=== PATIENT | female | born 1960 | race Caucasian/White ===

== ENCOUNTER → 2018-01-09 | Outpatient (CLI) | payer OTHER ==
[~2018-01-09] VITALS: Ht 170.2 cm; Wt 68.0 kg
[~2018-01-09] MED LIST: ADULT ASPIRIN81 MG PO; PRESERVISION A1 EAC2 PO; RED YEAST RICE600 MG PO; VERAPAMIL E.R240 M1 PO
--- NOTE | ~2018-01-09 | H ---
[facility] [place] [address] HISTORY AND PHYSICAL Name: CAYDEN RAPHAEL Room #: REG KARIS Malik#: [id number] Admission: 01/09/18 Attend Phys: Eliseo Grace MD Discharge: Date of : 58 Report #: [id number] THIS REPORT FOR: //name// CC: Eliseo Bernal DATE OF SERVICE: 01/09/2018 HISTORY OF PRESENT ILLNESS: The patient is a 57-year-old with history of SVT, who is here for SVT ablation. She denies chest pain, shortness of breath, PND, orthopnea, presyncope or syncope. PAST MEDICAL HISTORY: SVT. SOCIAL HISTORY: She does not smoke. FAMILY HISTORY: Noncontributory. ALLERGIES: None. MEDICATIONS: Reviewed. REVIEW OF SYSTEMS: A 12-point review of systems was performed and was negative, other than what I mentioned above. PHYSICAL EXAMINATION: VITAL SIGNS: Reviewed and stable. GENERAL: No acute distress. HEENT: Oropharynx clear. NECK: Supple, with no thyromegaly. HEART: Regular rate and rhythm. LUNGS: Clear to auscultation bilaterally. ABDOMEN: Soft, nontender and nondistended. EXTREMITIES: No clubbing, cyanosis or edema. NEUROLOGIC: Cranial nerves 2-12 intact. ASSESSMENT: Supraventricular tachycardia. PLAN: The patient will undergo SVT ablation today. Risks and benefits have been previously documented. <ELECTRONICALLY SIGNED> By: Eliseo Grace MD 01/23/18 1141 [id number] [id number] Eliseo Grace MD /nt
--- NOTE | ~2018-01-09 | P ---
[facility] [place] [address] PROCEDURE REPORT Name: CAYDEN RAPHAEL Room #: REG [facility]#: [id number] Admission: 01/09/18 Attend Phys: Eliseo Grace MD Discharge: Date of : 58 Report #: [id number] THIS REPORT FOR: //name// CC: Eliseo Bernal PROCEDURE PERFORMED: SVT ablation. PREOPERATIVE DIAGNOSIS: Supraventricular tachycardia. POSTOPERATIVE DIAGNOSES: Supraventricular tachycardia. ANESTHESIA: The patient underwent MAC anesthesia with no anesthesia related complications. PROCEDURE: The patient underwent informed consent where we discussed the details of the procedure including the risks, which include, but not limited to bleeding, vascular damage, stroke, [place] or damage to the [place] conduction system requiring permanent pacemaker. She understood these risks and is willing to proceed. The patient was brought to the EP laboratory in a fasting and sedated state, prepped and draped in a sterile fashion. I injected lidocaine to both groins and obtained access to the bilateral femoral veins placing an 8 and 6-Thai short sheath in the right femoral vein and a 6 and 7-Thai short sheath in the left femoral vein. Under fluoroscopy, I placed 3 quadripolar catheters at the HRA, His, and RV positions and a decapolar catheter in the coronary sinus. At baseline, the patient was in sinus rhythm with sinus cycle length of 700 milliseconds, CA interval 165 milliseconds, QRS duration 75 milliseconds, QT interval 375 milliseconds, AH interval 80 milliseconds, and HV interval 54 milliseconds. Next, atrial burst pacing was performed from the right and left atriums. AV block was noted at 310 milliseconds. AV melodie ERP was noted to be less than 270 at [address] cycle length. VA block was noted at 390 milliseconds and ventricular ERP was noted at 250 milliseconds at a [address] cycle length with VA conduction that was both midline and decremental. Isoproterenol was initiated at 1 mcg per minute. Atrial ERP was noted at 270 milliseconds at a [address] cycle length. With atrial burst pacing, the patient went into SVT with a tachycardia cycle length of 350 milliseconds, a septal VA time of 45 milliseconds and a VAHV response with ventricular entrainment. Of note, her SVT was very easily inducible on isoproterenol. 3D mapping and ablation: Next a detailed 3D map of the right atrium was created with specific emphasis of the His bundle and slow pathway regions. I performed 9 initial ablation lesions that were all approximately 10 seconds in duration as [facility] [address] [place] [address] PROCEDURE REPORT Name: CAYDEN RAPHAEL Room #: REG CLMarcial Malik#: [id number] Admission: 01/09/18 Attend Phys: Eliseo Grace MD Discharge: Date of : 58 Report #: [id number] the patient would go into SVT. As I continued to ablate these episodes slow down, the last several lesions would not induce SVT anymore and the patient would have nice slow junctionals. As such, post-ablation testing was performed. Ablation was performed via a 4-mm ablation catheter through a SR0 sheath. Post-ablation findings: Post-ablation, I initiated isoproterenol and AV block was noted at 250 milliseconds, atrial ERP was noted at 180 milliseconds at a [address] cycle length. Ventricular pacing was also performed. There was no induction of SVT and there were rare single AV melodie echoes. Isoproterenol was turned off and AV block was noted at 330 milliseconds. Testing was performed for approximately 30 minutes and SVT was no longer easily inducible. There was only occasional single AV melodie echoes. Post-ablation, the patient was in sinus rhythm with a sinus cycle length of 560 milliseconds, CA interval 150 milliseconds, QRS duration 75 milliseconds, QT interval 305 milliseconds. As such, all catheters and sheaths were pulled. Hemostasis was obtained. The patient awoke neurologically and hemodynamically intact with no complications and no significant bleeding. CONCLUSIONS: 1. 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 2. Normal SA melodie function. 3. Normal AV melodie function. 4. No other inducible arrhythmias on or off isoproterenol. <ELECTRONICALLY SIGNED> By: Eliseo Grace MD 01/24/18 1513 [id number] [id number] Eliseo Grace MD /nt
[2018-01-09 07:11] VITALS: BP 117/87
[2018-01-09 07:51] LABS: ABSOLUTE NEUTROPHILS 2.5 thou/uL (1.4-8.2); BASOPHILS 0.9 % (0.0-2.0); EOSINOPHILS 2.2 % (0.0-3.0); HEMATOCRIT 42.4 % (37.0-47.0); HEMOGLOBIN 14.3 gm/dL (12.0-15.0); LYMPHOCYTES 22.1 % (24.0-44.0); MCH 31.2 pg (26.0-34.0); MCHC 33.8 g/dL (28.0-37.0); MCV 92.3 fL (80.0-100.0); MONOCYTES 8.1 % (1.0-8.0); PLATELET COUNT 187 thou/uL (150-400); POLYS 66.7 % (36.0-66.0); RDW 12.9 % (10.5-14.5); WBC 3.7 thou/uL (4.0-11.0)
[2018-01-09 08:05] LABS: CALCIUM 9.1 mg/dL (8.5-10.1); CREATININE 0.6 mg/dL (0.6-1.0)
[2018-01-09 08:06] LABS: APTT 25.4 Seconds (24.5-32.8)
[2018-01-09 08:13] LABS: ALBUMIN 3.9 g/dL (3.4-5.0); TOTAL BILIRUBIN 0.4 mg/dL (<0.1-1.0); TOTAL PROTEIN 6.9 g/dL (6.4-8.2)
== END | disposition home or self-care (01) ==
LOC: CATH 06:40 → OR 10:52 → CATH 11:05 → EDSTATUS 11:06 → CATH 11:11
PROVIDERS: Internal Medicine Cardiovascular Disease
DX: I47.1 Supraventricular tachycardia (principal); Z79.82 Long term (current) use of aspirin; Z79.01 Long term (current) use of anticoagulants
CPT/HCPCS: 62110; 62900; 70005